=== PATIENT | female | born 1940 ===

== ENCOUNTER → 2018-07-02 | Outpatient (REF) ==
[2018-07-02 18:58] LABS: THYROID STIMULATING HORMONE 1.09 uIU/mL (0.465-4.680)
== END ==
LOC: ZLAB.WCH 18:09
PROVIDERS: Nurse Practitioner Family
DX: Z01.89 Encounter for other specified special examinations (principal)

== ENCOUNTER → 2018-07-20 | Outpatient (REF) | LOC: COL.CARD 15:40 | DX: Z01.818 Encounter for other preprocedural examination (principal) ==